=== PATIENT | female | born 1965 | race Caucasian/White ===

== ENCOUNTER 2017-10-07 12:43 | Emergency (ER) | payer MEDICAID ==
[~2017-10-07] VITALS: Ht 167.6 cm; Wt 63.8 kg
[~2017-10-07 12:43] MED LIST: BUPR150T8 PO; CLIN300C85 PO; DULO60CA64 PO; LORA2TAB96 PO; LORA2VIA27 IM; TOP100T PO; TRAZ-146 PO
[2017-10-07 12:48] VITALS: BP 109/77
[2017-10-07] MEDS ORDERED: TRAM50TA2 PO (13:15)
== END 2017-10-07 13:45 | disposition home or self-care (01) ==
LOC: ER 12:44
DX: M54.5 Low back pain (principal); F15.90 Other stimulant use, unspecified, uncomplicated; Z86.14 Personal history of Methicillin resistant Staphylococcus aureus infection; Z56.0 Unemployment, unspecified; Z88.2 Allergy status to sulfonamides; Z79.899 Other long term (current) drug therapy
CPT/HCPCS: 99283

== ENCOUNTER 2018-08-07 16:13 | Emergency (ER) | payer MEDICAID ==
[~2018-08-07] VITALS: Ht 167.6 cm; Wt 71.5 kg
[~2018-08-07 16:13] MED LIST changes: +CLIN-96 PO; -CLIN300C85 PO; -LORA2VIA27 IM; +LORA2VIA30 IM; -TRAZ-146 PO; +TRAZ-219 PO
[2018-08-07 16:49] VITALS: BP 126/87
[2018-08-07] MEDS ORDERED: LIDO700A32 TOP (18:11)
[2018-08-07] MEDS ORDERED: CYCL-1 PO (18:11)
[2018-08-07] MEDS ORDERED: HYDR-3965 PO (18:11)
[2018-08-07] MEDS ORDERED: ONDA4TAB6 PO (18:11)
[2018-08-07] MEDS ORDERED: LIDOcaine 5% patch TP ONE (18:15)
[2018-08-08] MEDS ORDERED: LIDOcaine 5% patch TP SCH (08:00)
== END 2018-08-07 18:37 | disposition home or self-care (01) ==
LOC: ER 16:13
DX: M54.5 Low back pain (principal); M79.18 Myalgia, other site; G89.29 Other chronic pain; F17.200 Nicotine dependence, unspecified, uncomplicated; F15.90 Other stimulant use, unspecified, uncomplicated; Z86.14 Personal history of Methicillin resistant Staphylococcus aureus infection; Z88.2 Allergy status to sulfonamides; Z79.899 Other long term (current) drug therapy
CPT/HCPCS: 99283

== ENCOUNTER 2018-08-21 12:52 | Emergency (ER) | payer MEDICAID ==
[~2018-08-21] VITALS: Ht 167.6 cm; Wt 70.9 kg
[~2018-08-21 12:52] MED LIST changes: +CYCL-1 PO; +HYDR-3965 PO; +LIDO700A32 TOP; +ONDA4TAB6 PO
[2018-08-21 13:41] VITALS: BP 139/84
== END 2018-08-21 13:43 | disposition home or self-care (01) ==
LOC: ER 12:53
DX: S93.402A Sprain of unspecified ligament of left ankle, initial encounter (principal); M79.672 Pain in left foot; G89.29 Other chronic pain; F15.90 Other stimulant use, unspecified, uncomplicated; Z88.2 Allergy status to sulfonamides; Z79.899 Other long term (current) drug therapy; Z79.2 Long term (current) use of antibiotics; X50.1XXA Overexertion from prolonged static or awkward postures, initial encounter; Y93.39 Activity, other involving climbing, rappelling and jumping off; Y92.89 Other specified places as the place of occurrence of the external cause; Y99.8 Other external cause status
CPT/HCPCS: 73610; 99284

== ENCOUNTER 2018-09-01 15:17 | Emergency (ER) | payer MEDICAID ==
[~2018-09-01] VITALS: Ht 167.6 cm; Wt 72.7 kg
[2018-09-01] MEDS ORDERED: ketorolac tromethamine 15mg/ml inj. IM ONE (15:55)
[2018-09-01] MEDS ORDERED: METH4TAB81 PO (16:05)
[2018-09-01] MEDS ORDERED: CYCL-1 PO (16:05)
[2018-09-01 17:00] VITALS: BP 125/90
== END 2018-09-01 17:04 | disposition home or self-care (01) ==
LOC: ER 15:17
DX: M54.5 Low back pain (principal); G89.29 Other chronic pain; F15.90 Other stimulant use, unspecified, uncomplicated; F19.90 Other psychoactive substance use, unspecified, uncomplicated; Z86.14 Personal history of Methicillin resistant Staphylococcus aureus infection; Z88.2 Allergy status to sulfonamides; Z79.2 Long term (current) use of antibiotics; Z79.899 Other long term (current) drug therapy
CPT/HCPCS: 96372; 99283; J1885